=== PATIENT | male | born 1985 | race Caucasian/White ===

== ENCOUNTER 2018-09-19 22:02 | Observation (INO) | payer OTHER, MEDICAID, SELFPAY ==
[2018-09-19 22:12] VITALS: BP 167/95; PULSE 79; RESP 16; TEMP 37.2; O2SAT 99; BMI 30.1
--- NOTE | 2018-09-19 22:36 | DI.CT.S_ITS ---
PROCEDURE: CT ABDOMEN PELVIS W CON INDICATIONS: right lower quadrant pain TECHNIQUE: After the administration of intravenous contrast, 5 mm thick sections acquired from the diaphragm to the symphysis. 5 mm coronal and sagittal reformats were acquired. For radiation dose reduction, the following was used: automated exposure control, adjustment of mA and/or kV according to patient size. COMPARISON: None. FINDINGS: Image quality: Excellent. ABDOMEN: Lung bases: Lung bases are clear. Heart size is normal. There is a small hiatal hernia. Solid organs: There is diffuse hepatic fatty infiltration. Liver is normal in size and enhancement. Gallbladder is normal. Biliary system is non dilated. Pancreas enhances normally. Spleen is normal in size and enhancement. No adrenal nodules. Kidneys demonstrate normal size and enhancement, without hydronephrosis. Peritoneum and bowel: Appendix measures 7 mm in diameter. There is no periappendiceal stranding. A small amount fluid is noted in the tip of the appendix. No periappendiceal stranding. No fluid collections of the fluid in the right lower quadrant. No free air. Small bowel and colon loops demonstrate normal wall thickness and caliber. Nodes and vessels: No retroperitoneal or mesenteric adenopathy by size criteria. Aorta and inferior vena cava are normal in size. Miscellaneous: No ventral hernias. PELVIS: Genitourinary: Bladder wall thickness is normal. Miscellaneous: No inguinal hernias or adenopathy. Bones: No suspicious bony lesions. No vertebral body compression fractures. IMPRESSION: 1. Appendix measures at the upper limits of normal in size with a small amount in the tip of the appendix. The findings are equivocal for early acute appendicitis. Please correlate clinically. 2. Mild hepatic steatosis. No significant discrepancy with the cook night radiology preliminary report. Dictated by: Ranjana Garcia M.D. on 09/20/2018 at 7:43 Approved by: Ranjana Garcia M.D. on 09/20/2018 at 7:48
--- NOTE | 2018-09-19 22:46 | ED_ITS ---
HPI - Abdominal Pain General Chief Complaint: Abdominal Pain Stated Complaint: Sharp pain in right abdomen Time Seen by Provider: 09/19/18 22:22 Source: patient Mode of arrival: ambulatory Limitations: no limitations History of Present Illness HPI narrative: Patient is a 33-year-old male who presents with abdominal discomfort. Been off and on for the past couple of days radiating from his umbilical area to his right lower quadrant. Sharp and stabbing in atrial sometimes burning. He does not have persistent ongoing right lower quadrant pain more periumbilical. No nausea or vomiting. He has had some loose stool but no diarrhea, no vomiting or nausea. He has not had any flank pain no hematuria. MD complaint: abdominal pain Location: periumbilical Severity: mild Quality: cramping, stabbing and burning Radiation: RLQ Relieving factors: nothing Exacerbating factors: nothing Associated symptoms: denies other symptoms Related Data Previous Rx's Medication Instructions Recorded escitalopram 20 mg tablet 20 mg PO QDAY #90 tab 07/30/18 clonazepam 1 mg tablet 1 mg PO AT HS PRN #30 08/02/18 Allergies Allergy/AdvReac Type Severity Reaction Status Date / Time peanut [PEANUT] Allergy Severe HIVES, SOB Verified 06/21/18 16:36 sertraline [From ZOLOFT] Allergy Mild RASH Verified 06/21/18 16:36 Penicillins [PENICILLINS] Allergy Unknown CHILDHOOD Verified 06/21/18 16:36 DAIRY Allergy Severe SOB Uncoded 12/13/17 12:12 Review of Systems Review of Systems GENERAL: Denies chills, fatigue, malaise, fever, sweats, travel HEENT: Denies sinus pain, ear pain, sore throat, difficulty swallowing, neck pain RESPIRATORY: Denies dyspnea, cough, wheezing, hemoptysis, sputum. CARDIOVASCULAR: Denies chest pain, palpitations, orthopnea, edema GASTROINTESTINAL: See HPI : Denies dysuria, frequency, incontinence, hematuria, urinary retention, flank pain. MUSCULOSKELETAL: Denies weakness, joint pain, or bony pain SKIN: No rash, no erythema, no pruritus NEUROLOGIC: Denies weakness, dizziness, headache, numbness, change in speech, confusion PSYCHIATRIC: No concerning psychosocial issues. 12 point review of systems is negative except for those stated above and HPI PFSH Medical History Depression (Acute) Family History Mother Seizures Sister Type 1 diabetes Social History Smoking Status: Never smoker alcohol intake: current Exam Initial Vital Signs Initial Vital Signs: Vital Signs Temperature 99 F 09/19/18 22:12 Pulse Rate 79 09/19/18 22:12 Respiratory Rate 16 09/19/18 22:12 Blood Pressure 167/95 H 09/19/18 22:12 Pulse Oximetry 99 09/19/18 22:12 GENERAL: Well-appearing, well-nourished and in no acute distress. HEENT: Head atraumatic,EOMI, pupils reactive, CARDIOVASCULAR: Regular rate and rhythm without murmurs, rubs or gallops. RESPIRATORY: Breath sounds equal bilaterally, no wheezes rales or rhonchi. ABDOMEN: Soft, mild adair umbilical pain minimal right lower quadrant tenderness no guarding or rebound EXTREMITIES: Normal range of motion, no clubbing or edema. Neurovascularly intact NEUROLOGICAL: Alert and oriented x4.Normal gait and speech. Cranial nerves II through XII grossly intact. SKIN: Warm, dry, no laceration, no petechiae, no rashes or lesions. Course Orders Ordered: ED Orders 09/19/18 22:36 CT abdomen pelvis w con Stat 09/19/18 22:50 Complete Blood Count AUTO DIFF Stat Comprehensive Metabolic Panel Stat Lipase Stat Discontinued Medications Cefotetan Disodium/Dextrose (Cefotan) 2 gm in 50 mls @ 100 mls/hr IV NOW ONE Stop: 09/20/18 00:28 Last Admin: 09/20/18 00:20 Dose: 100 mls/hr Vital Signs - 8 hr 09/19/18 22:12 09/19/18 23:34 09/20/18 00:00 Temperature 99 F Pulse Rate 79 83 77 Respiratory Rate 16 15 Blood Pressure 167/95 H Blood Pressure [Left Arm] 131/75 152/92 H Pulse Oximetry 99 96 96 MDM - Abdominal Pain Lab Data Attestation: I reviewed the patient's lab results. Result diagrams: 09/19/18 22:50 09/19/18 22:50 Lab Results 09/19/18 09/19/18 Range/Units 22:50 22:50 WBC 5.8 (4.5-11.0) X10^3/uL RBC 5.26 (4.5-5.9) X10^6/uL Hgb 15.9 (13.5-17.5) g/dL Hct 47.4 (41-53) % MCV 90.3 (80-100) fL MCH 30.3 (26-34) PG MCHC 33.6 (30-36) % RDW 13.3 (11.6-14.8) % Plt Count 189 (150-400) X10^3/uL Neut % (Auto) 52.1 (50-75) % Lymph % (Auto) 36.3 (25-40) % [place] % (Auto) 9.3 (3-14) % Eos % (Auto) 1.8 L (2-4) % Baso % (Auto) 0.5 (0-2) % Neut # (Auto) 3000 (5407-4317) /uL Lymph # (Auto) 2100 (0535-2640) /uL [place] # (Auto) 500 (0-900) /uL Eos # (Auto) 100 (0-450) /uL Baso # (Auto) 0 (0-100) /uL Sodium 142 (137-145) mmol/L Potassium 3.9 (3.4-5.1) mmol/L Chloride 104 (98-107) mmol/L Carbon Dioxide 26 (22-32) mmol/L BUN 15 (9-20) mg/dL Creatinine 0.90 (0.66-1.25) mg/dL Estimated GFR > 60.0 (>60) mL/min BUN/Creatinine Ratio 16.7 (6-22) Glucose 94 (70-100) mg/dL Calcium 9.7 (8.4-10.2) mg/dL Total Bilirubin 0.5 (0.2-1.3) mg/dL AST 43 (17-59) IU/L ALT 91 H (21-72) IU/L Alkaline Phosphatase 49 (38-126) U/L Total Protein 7.6 (6.3-8.2) g/dL Albumin 4.7 (3.5-5.0) g/dL Globulin 2.9 (1.7-4.1) g/dL Albumin/Globulin Ratio 1.6 (1.0-2.8) Lipase 64 (23-300) U/L Imaging Data CT scan - abdomen: Radiologist's impression: [facility] shift lead report: Equivocal for early acute appendicitis with distal appendix fluid filled and minimally enlarged at 7 mm but no surrounding inflammation or walling off. Rest of appendix air-filled and normal size. Scattered mild diffuse colonic stool. MDM Narrative Medical decision making narrative: Patient is resting comfortably. CT results reviewed. Surgery called. Dr. Valencia, updated on patient's symptoms and test results. Agrees with admission recommend antibiotics will likely go to OR tomorrow. Keep NPO. Discharge Plan Departure Patient Disposition: Admitted as Observation Clinical Impression: Acute appendicitis Admit Date/Time: 09/20/18 00:12 Admit Provider: Seda Valencia
[2018-09-19 22:59] LABS: Add Manual Diff / Slide Review NO; Basophils Absolute Auto 0 /uL (0-100); Basophils Percent Auto 0.5 % (0-2); Eosinophils Absolute Auto 100 /uL (0-450); Eosinophils Percent Auto 1.8 % (2-4); Hematocrit 47.4 % (41-53); Hemoglobin 15.9 g/dL (13.5-17.5); Lymphocytes Absolute Auto 2100 /uL (1100-4500); Lymphocytes Percent Auto 36.3 % (25-40); Mean Corpuscular HGB Conc 33.6 % (30-36); Mean Corpuscular Hemoglobin 30.3 PG (26-34); Mean Corpuscular Volume 90.3 fL (80-100); Monocytes Absolute Auto 500 /uL (0-900); Monocytes Percent Auto 9.3 % (3-14); Neutrophils Absolute Auto 3000 /uL (1500-7000); Neutrophils Percent Auto 52.1 % (50-75); Platelet Count 189 X10^3/uL (150-400); Red Blood Cell Count 5.26 X10^6/uL (4.5-5.9); Red Cell Distribution Width 13.3 % (11.6-14.8); White Blood Cell Count 5.8 X10^3/uL (4.5-11.0)
[2018-09-19 23:11] LABS: Alanine Aminotransferase 91 IU/L (21-72); Albumin 4.7 g/dL (3.5-5.0); Albumin Globulin Ratio 1.6 (1.0-2.8); Alkaline Phosphatase 49 U/L (38-126); Aspartate Aminotransferase 43 IU/L (17-59); BUN Creatinine Ratio 16.7 (6-22); Bilirubin Total 0.5 mg/dL (0.2-1.3); Blood Urea Nitrogen 15 mg/dL (9-20); Calcium 9.7 mg/dL (8.4-10.2); Carbon Dioxide 26 mmol/L (22-32); Chloride 104 mmol/L (98-107); Estimated Glomerular Filt Rate > 60.0 mL/min (>60); Globulin 2.9 g/dL (1.7-4.1); Glucose 94 mg/dL (70-100); HEMOLYSIS 31 (0-50); Lipase 64 U/L (23-300); Potassium 3.9 mmol/L (3.4-5.1); Sodium 142 mmol/L (137-145); Total Protein 7.6 g/dL (6.3-8.2)
[2018-09-19 23:34] VITALS: BP 131/75; PULSE 83; RESP 15; O2SAT 96
[2018-09-20] VITALS (15 sets, daily range): BP systolic 126–161; BP diastolic 64–93; PULSE 52–102; RESP 14–18; TEMP 36.3–37.1; O2SAT 93–99; BMI 30.1
--- NOTE | 2018-09-20 | PATH_ITS ---
[facility] Accession Number: [id number] . 01 Material submitted: . APPENDIX . 02 Diagnosis: Appendix: Changes consistent with early acute appendicitis. Negative for atypia. MRV/09/24/2018 . 02 Electronically signed: . Georgi Welsh MD, Pathologist NPI- [id number] . 01 Gross description: . Received in formalin, labeled appendix, is an intact appendix (length-4.8 cm, diameter-0.9 cm) with gonzales-pink smooth and shiny serosa and attached mesoappendix (up to 2.7 cm in depth). The resection margin is received stapled. The lumen contains pale yellow turbid paste-like material. The wall is up to 0.2 cm thick. No nodules, masses or lesions are identified. The resection margin is inked black. Section code: (A1) resection margin en face and four additional serial sections; (A2) bivalved tip, entirely submitted. ([id number]) /[facility] . 02 Pathologist provided ICD-10: K35.80 . 02 CPT . 972321 Performed at: 01 [facility] [address], [place], [place] [id number] MD Baldev Landeros MD Phone: [phone] Performed at: 02 [facility] [address] [place], [place] [id number] MD Maile Bundy MD Phone: [phone]
[2018-09-20] MEDS: CEFOTETAN 2 GM/50 ML PIGGYBACK IV ×2 (00:20→17:20)
[2018-09-20] MEDS: SODIUM CHLORIDE 0.9% 1,000 ML 125 ML IV ×2 (01:51→09:11)
--- NOTE | 2018-09-20 05:32 | PC.NURSE ---
Pt arrived on unit at 0015, able to ambulate well. VSS, A and O x 4. Denies pain unless pressure applied to R LQ then pain there and on L LQ as well. Able to sleep. NPO. Tolerating IVF well.
--- NOTE | 2018-09-20 13:57 | CM.IDA ---
Addendum entered by CORBY Quintana 09/20/18 15:36: Met w/pt, explained role. Pt about to leave floor for his surgery. Pt expects to DC after his surgery, tonight. Pt explains he is confident about going home and has family driving up to assist as needed. No barriers to safe DC home expected. Original Note: Discharge Planning/Care Management CM Discharge Assessment Start: 09/20/18 13:51 Freq: Status: Active Protocol: Document 09/20/18 13:51 FELIX (Rec: 09/20/18 13:57 FELIX [id number]) Discharge Planning Assessment Assigned Protector Plate Attacher CORBY Watson DPOA/Assigned Designee Name fela Gentile Contact Information [phone] Advance Directives? No Advance Directives on File No History Provided By Patient Prior Living Arrangements House Household Members none Type of transporation used prior to Drives own vehicle admit Comment Reviewed chart. No H+P. Pt going to the OR w/ confirmed appendicitis. PMH includes depression and anxiety attacks . Following closely and will plan to assess before pt is DC . Independent with ADL's Yes Is patient alert and oriented? Yes Barriers to Discharge No Comment Likely no barriers to safe DC home. Following closely. Discharge Plan Home Transportation Arrangement Family Referrals Initiated None needed Additional Comment Following. Whiteboard Updated in Patient Room with Yes name and ext. # of Protector Plate Attacher Review Status In Process
--- NOTE | 2018-09-20 17:04 | PM.HP.1 ---
History of Present Illness Date Patient Seen: 09/20/18 Time Patient Seen: 17:04 Chief complaint: Sharp pain in right abdomen Narrative: Shiraz is a 33-year-old gentleman who presented the emergency room with several days of waxing waning right lower quadrant pain. He was found on examination and CT to have early appendicitis. I have been consulted for definitive management. He denies any fever at home. He describes his discomfort as sharp and intermittent. Patient History Medical History Depression (Acute) Family & Social History Family History: Reviewed 09/20/18 by Seda Valencia MD Social History: household members none Prior Living Arrangements House Safety & Behavioral: Feels Safe in Current Yes Environment Been Physically Hurt or No Threatened By a Person Suicidal Ideation Description None Suicide Plan Description No Plan Tobacco & Substance use: Smoking Status Never smoker alcohol intake current alcohol intake frequency 0-2 drinks per day Substance Use Type marijuana Meds Home Medications Medication Instructions Recorded Confirmed Type clonazepam 1 mg tablet 1 mg PO AT HS PRN #30 08/02/18 09/20/18 Rx escitalopram oxalate 10 mg PO QAM 09/20/18 09/20/18 History Allergies Allergy/AdvReac Type Severity Reaction Status Date / Time peanut [PEANUT] Allergy Severe HIVES, SOB Verified 06/21/18 16:36 sertraline [From ZOLOFT] Allergy Mild RASH Verified 06/21/18 16:36 Penicillins [PENICILLINS] Allergy Unknown CHILDHOOD Verified 06/21/18 16:36 DAIRY Allergy Severe SOB Uncoded 12/13/17 12:12 Review of Systems Review of Systems All systems reviewed & are unremarkable except as noted in HPI and below Exam Vital Signs (past 8 hours): - 09/20/18 13:34 09/20/18 15:43 Temperature 98.8 F 98.8 F Pulse Rate 61 53 L Respiratory Rate 16 16 Blood Pressure 142/93 H 134/84 Pulse Oximetry 96 94 Oxygen Delivery Method Room Air Narrative Exam Narrative: Very pleasant young man in no obvious distress. He is walking around his room and appears comfortable HEENT: Normocephalic and atraumatic, pupils equal round reactive to light accommodation with anicteric sclera Lungs: Clear bilaterally Heart: Regular rate and rhythm Abdomen: Soft, tender to palpation in the right lower quadrant. Active bowel sounds Extremities: Warm well perfused Objective Labs Result Diagrams: 09/19/18 22:50 09/19/18 22:50 Labs: Laboratory Results - last 24 hr 09/19/18 09/19/18 22:50 22:50 WBC 5.8 RBC 5.26 Hgb 15.9 Hct 47.4 MCV 90.3 MCH 30.3 MCHC 33.6 RDW 13.3 Plt Count 189 Neut % (Auto) 52.1 Lymph % (Auto) 36.3 [place] % (Auto) 9.3 Eos % (Auto) 1.8 L Baso % (Auto) 0.5 Neut # (Auto) 3000 Lymph # (Auto) 2100 [place] # (Auto) 500 Eos # (Auto) 100 Baso # (Auto) 0 Sodium 142 Potassium 3.9 Chloride 104 Carbon Dioxide 26 BUN 15 Creatinine 0.90 Estimated GFR > 60.0 BUN/Creatinine Ratio 16.7 Glucose 94 Calcium 9.7 Total Bilirubin 0.5 AST 43 ALT 91 H Alkaline Phosphatase 49 Total Protein 7.6 Albumin 4.7 Globulin 2.9 Albumin/Globulin Ratio 1.[address] [place] [address] CT Scan Report Addendum Patient: Werner Fischer MR#: [id number] : 1985 Acct:[id number] Age/Sex: 33 / M Date of Service: 09/19/18 Loc: 205-1 Accession Number: [id number] Procedure: CT abdomen pelvis w con Ordering Provider: Claudia Medina D.O. ADDENDUM This report includes an Addendum and supersedes previous reports for this exam. PROCEDURE: CT ABDOMEN PELVIS W CON INDICATIONS: right lower quadrant pain TECHNIQUE: After the administration of intravenous contrast, 5 mm thick sections acquired from the diaphragm to the symphysis. 5 mm coronal and sagittal reformats were acquired. For radiation dose reduction, the following was used: automated exposure control, adjustment of mA and/or kV according to patient size. COMPARISON: None. FINDINGS: Image quality: Excellent. ABDOMEN: Lung bases: Lung bases are clear. Heart size is normal. There is a small hiatal hernia. Solid organs: There is diffuse hepatic fatty infiltration. Liver is normal in size and enhancement. Gallbladder is normal. Biliary system is non dilated. Pancreas enhances normally. Spleen is normal in size and enhancement. No adrenal nodules. Kidneys demonstrate normal size and enhancement, without hydronephrosis. Peritoneum and bowel: Appendix measures 7 mm in diameter. There is no periappendiceal stranding. A small amount fluid is noted in the tip of the appendix. No periappendiceal stranding. No fluid collections of the fluid in the right lower quadrant. No free air. Small bowel and colon loops demonstrate normal wall thickness and caliber. Nodes and vessels: No retroperitoneal or mesenteric adenopathy by size criteria. Aorta and inferior vena cava are normal in size. Miscellaneous: No ventral hernias. PELVIS: Genitourinary: Bladder wall thickness is normal. Miscellaneous: No inguinal hernias or adenopathy. Bones: No suspicious bony lesions. No vertebral body compression fractures. IMPRESSION: 1. Appendix measures at the upper limits of normal in size with a small amount of fluid in the tip of the appendix. The findings are equivocal for early acute appendicitis. Please correlate clinically. 2. Mild hepatic steatosis. No significant discrepancy with the plant operator/shift supervisor radiology preliminary report. Dictated by: Ranjana Garcia M.D. on 09/20/2018 at 7:43 Approved by: Ranjana Garcia M.D. on 09/20/2018 at 7:48 ADDENDUM: Typograophic error(s) corrected (underlined) impression #1. Dictated by: Ranjana Garcia M.D. on 09/20/2018 at 9:38 Approved by: Ranjana Garcia M.D. on 09/20/2018 at 9:38 Addendum Dictated By: Chrissy Garcia MD Addendum Signed By: Addendum Cosigned By: DD/ TD/TT: 09/20/18 PROCEDURE: CT ABDOMEN PELVIS W CON INDICATIONS: right lower quadrant pain TECHNIQUE: After the administration of intravenous contrast, 5 mm thick sections acquired from the diaphragm to the symphysis. 5 mm coronal and sagittal reformats were acquired. For radiation dose reduction, the following was used: automated exposure control, adjustment of mA and/or kV according to patient size. COMPARISON: None. FINDINGS: Image quality: Excellent. ABDOMEN: Lung bases: Lung bases are clear. Heart size is normal. There is a small hiatal hernia. Solid organs: There is diffuse hepatic fatty infiltration. Liver is normal in size and enhancement. Gallbladder is normal. Biliary system is non dilated. Pancreas enhances normally. Spleen is normal in size and enhancement. No adrenal nodules. Kidneys demonstrate normal size and enhancement, without hydronephrosis. Peritoneum and bowel: Appendix measures 7 mm in diameter. There is no periappendiceal stranding. A small amount fluid is noted in the tip of the appendix. No periappendiceal stranding. No fluid collections of the fluid in the right lower quadrant. No free air. Small bowel and colon loops demonstrate normal wall thickness and caliber. Nodes and vessels: No retroperitoneal or mesenteric adenopathy by size criteria. Aorta and inferior vena cava are normal in size. Miscellaneous: No ventral hernias. PELVIS: Genitourinary: Bladder wall thickness is normal. Miscellaneous: No inguinal hernias or adenopathy. Bones: No suspicious bony lesions. No vertebral body compression fractures. IMPRESSION: 1. Appendix measures at the upper limits of normal in size with a small amount in the tip of the appendix. The findings are equivocal for early acute appendicitis. Please correlate clinically. 2. Mild hepatic steatosis. No significant discrepancy with the plant operator/shift supervisor radiology preliminary report. Dictated by: Ranjana Garcia M.D. on 09/20/2018 at 7:43 Approved by: Ranjana Garcia M.D. on 09/20/2018 at 7:48 Assessment & Plan Plan: Assessment/Plan Narrative: Very pleasant and healthy young man with early appendicitis. We discussed the risks and benefits of appendectomy the patient expressed desire to complete the procedure today. Quality VTE Deep Vein Thrombosis/Pulmonary Embolism Present on Admission: No
[2018-09-20] MEDS: LACTATED RINGERS 1,000 ML 42 ML IV (17:11)
[2018-09-20] MEDS: ACETAMINOPHEN IV 1,000 MG/100 ML VIAL 400 MG IV (17:40)
[2018-09-20] MEDS: LIDOCAINE 1% W/EPI INJ 20 ML INJ (18:01)
[2018-09-20] MEDS: BUPIVACAINE 0.5% (PF) VIAL 30 ML INJ (18:02)
--- NOTE | 2018-09-20 18:14 | PM.OP.1 ---
Operative Date/Time/Diagnoses Date of procedure: 09/20/18 Time of procedure: 18:14 Pre-op diagnosis: Acute appendicitis Post-op diagnosis: same Procedure & Clinicians Procedure: Laparoscopic Appendectomy Same procedure as scheduled: Yes Indications: Acute appendicitis Click Yes if Unassisted: Yes Anesthesia Type: General (Dr. Aguilar) Operative Notes Findings: Early acute appendicitis without rupture or peritonitis Closure Type: primary Specimen(s): other (Appendix to pathology in formalin) Estimated Blood Loss (mL): 5 Procedure in detail: After obtaining informed consent, the patient was brought to the operating room and placed in the supine position on the operating table. Following successful induction of general endotracheal anesthesia, appropriate padding of all loretta prominences, and placement of appropriate monitors, the abdomen was prepped and draped in the standard surgical fashion. A timeout was held per [facility] protocol. Following infiltration with local anesthetic to create a field block, an incision was created inferior to the umbilicus and carried down through the skin and subcutaneous tissue to reveal the fascia below. 2-0 Vicryl retention sutures were placed on either side of midline and the abdomen was entered under direct vision using an 11 blade scalpel. A 12 mm blunt-tipped Elaine trocar was placed in the abdominal cavity and it was insufflated to 15 mmHg pressure. The patient was placed in Trendelenburg position with the left side rotated toward the floor. Under direct vision, a second 5 mm trocar was placed in the right upper quadrant and a third 5 mm trocar was placed midway between the umbilicus and the pubis. The camera was placed in the abdominal cavity and we immediately visualized the appendix in the anti-cecal position. The appendix was grasped and elevated to reveal its attachment to the cecum. 3 loads of a laparoscopic stapling device were used to liberate the appendix and its mesentery from its attachment to the cecum. The specimen was placed in a bag and removed via the umbilical port. The wounds were checked for hemostasis. The operative site was visualized and irrigated with warm saline solution. The abdomen was aspirated free of all fluid and particulate matter. The trochars were removed under direct vision. The abdomen was desufflated by giving the patient a large Valsalva maneuver. The umbilical incision was closed in 2 layers with Vicryl and Monocryl suture. Monocryl sutures were placed in the other 2 port sites. All sponge, needle, and instrument counts were correct at the conclusion of the case. The patient was allowed to awaken from anesthesia without difficulty and taken to the post-anesthesia care unit in good condition. Complications: none Condition: stable Disposition: PACU Plan for aftercare: 1. Discharge to home 2. Follow up in my office in 2 weeks
[2018-09-20] MEDS: OXYCODONE/ACETAMINOPHEN 5/325 TABLET 1 TAB PO (18:51)
--- NOTE | 2018-09-20 22:13 | PC.NURSE ---
Pt is A&O x3, pleasant and cooperative w/ staff. Patient left floor for surgery of a lap appi at 1630. Patient arrived back to floor w/ no pain, n/v and was told he was to be D/C today. D/C orders were not in on nurse screen. Dr. Navarro up to floor rounding, discussed d/c of patient orders placed. IV out w/ ease, pt kurtis. well. VSS, 100% on RA. 3 Lap sites left GALINDO w/ Dermabond glue. Pt. walked self out to personal car. Left in stable condition.
== END 2018-09-20 22:16 | disposition home or self-care (01) ==
LOC: ED 09-20 00:07 → AC 09-20 06:48
PROVIDERS: Admitting Provider Surgery; Emergency Provider Emergency Medicine; Family Provider Family Medicine; PCP Family Medicine; Visit Provider Surgery
PROC: 0DTJ4ZZ Resection of Appendix, Percutaneous Endoscopic Approach (ICD-10-PCS; CPT 44970; principal; 2018-09-20 16:30)
DX: K35.80 Unspecified acute appendicitis (principal); R10.9 Unspecified abdominal pain
CPT/HCPCS: 44970; 36591; 74177; 80053; 83690; 85025; 88304; 96365; 99219; 99283; 99285; G0378; J0131; J0330; J1100; J2250; J2405; J2704; J3010; Q9967

== ENCOUNTER 2019-01-05 19:30 | Emergency (ER) | payer OTHER, MEDICAID, SELFPAY ==
[2018-09-20 01:24] VITALS: BMI 30.1
[2019-01-05 19:43] VITALS: BP 148/90; PULSE 97; RESP 18; TEMP 37; O2SAT 98; BMI 30.1
--- NOTE | 2019-01-05 19:45 | ED.ABDPAIN ---
HPI - Abdominal Pain <Flavia Agee PA-C - Last Filed: 01/05/19 21:37> General Chief Complaint: Abdominal Pain Stated Complaint: abdominal pains Time Seen by Provider: 01/05/19 19:44 Source: patient Mode of arrival: ambulatory Limitations: no limitations History of Present Illness HPI narrative: This 33-year-old male comes to ED secondary to recurrent abdominal pain. He states he was seen at walk-in clinic earlier and advised he could come to ED if desired. No further workup done there. He states that he has had ?random? side pain, can occur on either side. He is cries these as brief stabbing pains that resolved right away, like a stitch. He states he thinks this has been going on since after his appendectomy, and he notes that he had pain on the left side prior to having his appendix out as well. he states that pain is worse if she over eats or has a full stomach. He noted that it was worse 1 day after eating pizza however notes also that he is lactose intolerant. He states that he has felt more gassy lately and also has been taking fiber due to history of hemorrhoid. He feels like this has gradually worsened over the last couple of weeks in that the pains happen more frequently, no acute changes today. He denies any nausea or vomiting. He denies any constipation or diarrhea, rare blood in the stools related to hemorrhoids, none in the last couple of weeks. He has not had any nausea or vomiting. He has not had any urinary symptoms or hematuria. He states he has had some sinus congestion and discolored nasal mucus with a bit of cough this week, felt somewhat warm last night but no temperature is taken, does not feel like he has a fever today. He states he has some chest congestion but no wheeze, dyspnea, or chest pain. He states his cough has not seem to trigger or make his abdominal pain worse. Related Data Previous Rx's Medication Instructions Recorded albuterol sulfate HFA 90 2 puff INHALATION Q6H PRN #18 gram 11/13/18 mcg/actuation aerosol inhaler clonazepam 1 mg tablet 1 mg PO AT HS PRN #30 tab 11/13/18 escitalopram 20 mg tablet 20 mg PO QAM #30 tab 11/13/18 Allergies Allergy/AdvReac Type Severity Reaction Status Date / Time peanut [PEANUT] Allergy Severe HIVES, SOB Verified 01/05/19 12:51 sertraline [From ZOLOFT] Allergy Mild RASH Verified 01/05/19 12:51 Penicillins [PENICILLINS] Allergy Unknown CHILDHOOD Verified 01/05/19 12:51 DAIRY Allergy Severe SOB Uncoded 12/13/17 12:12 Review of Systems <Flavia Agee PA-C - Last Filed: 01/05/19 21:37> Review of Systems ROS Unobtainable: All systems reviewed & are unremarkable except as noted in HPI and below PFSH <Flavia Agee PA-C - Last Filed: 01/05/19 21:37> Medical History (Updated 01/05/19 @ 21:14 by Flavia Agee PA-C) Lactose intolerance (Chronic) Panic attacks (Chronic) Depression (Chronic) Surgical History (Updated 01/05/19 @ 20:14 by Flavia Agee PA-C) Acute appendicitis (Resolved) Family History Mother Seizures Sister Type 1 diabetes Social History household members: none Smoking Status: Never smoker alcohol intake: current Social History household members: none Smoking Status: Never smoker alcohol intake: current Exam <Flavia Agee PA-C - Last Filed: 01/05/19 21:37> Narrative Exam Narrative: GENERAL APPEARANCE: Patient sitting comfortably, in no distress. HEENT: PERRL, EOMI, no scleral icterus for, normal oropharynx NECK: Supple LUNGS: Clear to auscultation bilaterally. HEART: Rate and rhythm regular, normal S1 and S2, no S3 or S4. ABDOMEN: Soft, nontender, nondistended, bowel sounds present x 4 quadrants, no masses palpable, no hepatosplenomegaly, no CVAT. EXTREMITIES: No edema DERMATOLOGIC: No jaundice or exanthem NEUROLOGIC: Alert and oriented with normal speech and coordination Initial Vital Signs Initial Vital Signs: Vital Signs Temperature 98.6 F 01/05/19 19:43 Pulse Rate 97 H 01/05/19 19:43 Respiratory Rate 18 01/05/19 19:43 Blood Pressure 148/90 H 01/05/19 19:43 Pulse Oximetry 98 01/05/19 19:43 <DO Fernando Cobos Last Filed: 01/06/19 01:20> Initial Vital Signs Initial Vital Signs: Vital Signs Temperature 98.6 F 01/05/19 19:43 Pulse Rate 97 H 01/05/19 19:43 Respiratory Rate 18 01/05/19 19:43 Blood Pressure 148/90 H 01/05/19 19:43 Pulse Oximetry 98 01/05/19 19:43 Course <EVA Saldaña Last Filed: 01/05/19 21:37> Additional Information: Patient has chronic abdominal pain atypical for any acute surgical issue, may be correlated with food and increased fiber intake since surgery. No acute findings on lab work. Advised follow-up with PCP next week to determine whether to do further outpatient testing, i.e. ultrasound, or any other consultation. He is agreeable. He agrees to return if any acutely worsening symptoms or new symptoms such as vomiting or fever in the interim Orders Ordered: ED Orders 01/05/19 20:20 Complete Blood Count AUTO DIFF Stat Comprehensive Metabolic Panel Stat Lipase Stat Vital Signs - 8 hr 01/05/19 19:43 01/05/19 21:28 Temperature 98.6 F 98.8 F Pulse Rate 97 H 90 Respiratory Rate 18 18 Blood Pressure 148/90 H 135/80 Pulse Oximetry 98 99 <DO Fernando Cobos Last Filed: 01/06/19 01:20> Orders Ordered: ED Orders 01/05/19 20:20 Complete Blood Count AUTO DIFF Stat Comprehensive Metabolic Panel Stat Lipase Stat Vital Signs - 8 hr 01/05/19 19:43 01/05/19 21:28 Temperature 98.6 F 98.8 F Pulse Rate 97 H 90 Respiratory Rate 18 18 Blood Pressure 148/90 H 135/80 Pulse Oximetry 98 99 MDM - Abdominal Pain <EVA Saldaña Last Filed: 01/05/19 21:37> Lab Data Result diagrams: 01/05/19 20:20 01/05/19 20:20 Lab Results 01/05/19 01/05/19 Range/Units 20:20 20:20 WBC 6.2 (4.5-11.0) X10^3/uL RBC 5.15 (4.5-5.9) X10^6/uL Hgb 15.3 (13.5-17.5) g/dL Hct 44.8 (41-53) % MCV 87.0 (80-100) fL MCH 29.8 (26-34) PG MCHC 34.2 (30-36) % RDW 13.4 (11.6-14.8) % Plt Count 161 (150-400) X10^3/uL Neut % (Auto) 63.9 (50-75) % Lymph % (Auto) 18.0 L (25-40) % Cooke % (Auto) 16.2 H (3-14) % Eos % (Auto) 0.9 L (2-4) % Baso % (Auto) 1.0 (0-2) % Neut # (Auto) 4000 (4434-7493) /uL Lymph # (Auto) 1100 (5175-0597) /uL Cooke # (Auto) 1000 H (0-900) /uL Eos # (Auto) 100 (0-450) /uL Baso # (Auto) 100 (0-100) /uL Sodium 138 (137-145) mmol/L Potassium 4.0 (3.4-5.1) mmol/L Chloride 100 (98-107) mmol/L Carbon Dioxide 29 (22-32) mmol/L BUN 12 (9-20) mg/dL Creatinine 0.90 (0.66-1.25) mg/dL Estimated GFR > 60.0 (>60) mL/min BUN/Creatinine Ratio 13.3 (6-22) Glucose 95 (70-100) mg/dL Calcium 9.2 (8.4-10.2) mg/dL Total Bilirubin 0.7 (0.2-1.3) mg/dL AST 27 (17-59) IU/L ALT 69 (21-72) IU/L Alkaline Phosphatase 54 (38-126) U/L Total Protein 7.6 (6.3-8.2) g/dL Albumin 4.6 (3.5-5.0) g/dL Globulin 3.0 (1.7-4.1) g/dL Albumin/Globulin Ratio 1.5 (1.0-2.8) Lipase 59 (23-300) U/L Point of care testing: Urine Dip Bedside Urine Glucose Negative Bedside Urine Bilirubin - Negative Bedside Urine Ketone - Negative Urine Specific Redmon 1.015 Bedside Urine Occult Blood - Negative Bedside Urine pH 7.0 Bedside Urine Protein - Negative Bedside Urine Urobilinogen - Negative Bedside Urine Nitrite - Negative Bedside Urine Leukocytes - Negative Esterase <Brenden DO Kenney - Last Filed: 01/06/19 01:20> Lab Data Lab Results 01/05/19 01/05/19 Range/Units 20:20 20:20 WBC 6.2 (4.5-11.0) X10^3/uL RBC 5.15 (4.5-5.9) X10^6/uL Hgb 15.3 (13.5-17.5) g/dL Hct 44.8 (41-53) % MCV 87.0 (80-100) fL MCH 29.8 (26-34) PG MCHC 34.2 (30-36) % RDW 13.4 (11.6-14.8) % Plt Count 161 (150-400) X10^3/uL Neut % (Auto) 63.9 (50-75) % Lymph % (Auto) 18.0 L (25-40) % Cooke % (Auto) 16.2 H (3-14) % Eos % (Auto) 0.9 L (2-4) % Baso % (Auto) 1.0 (0-2) % Neut # (Auto) 4000 (8340-0398) /uL Lymph # (Auto) 1100 (9648-3986) /uL Cooke # (Auto) 1000 H (0-900) /uL Eos # (Auto) 100 (0-450) /uL Baso # (Auto) 100 (0-100) /uL Sodium 138 (137-145) mmol/L Potassium 4.0 (3.4-5.1) mmol/L Chloride 100 (98-107) mmol/L Carbon Dioxide 29 (22-32) mmol/L BUN 12 (9-20) mg/dL Creatinine 0.90 (0.66-1.25) mg/dL Estimated GFR > 60.0 (>60) mL/min BUN/Creatinine Ratio 13.3 (6-22) Glucose 95 (70-100) mg/dL Calcium 9.2 (8.4-10.2) mg/dL Total Bilirubin 0.7 (0.2-1.3) mg/dL AST 27 (17-59) IU/L ALT 69 (21-72) IU/L Alkaline Phosphatase 54 (38-126) U/L Total Protein 7.6 (6.3-8.2) g/dL Albumin 4.6 (3.5-5.0) g/dL Globulin 3.0 (1.7-4.1) g/dL Albumin/Globulin Ratio 1.5 (1.0-2.8) Lipase 59 (23-300) U/L Point of care testing: Urine Dip Bedside Urine Glucose Negative Bedside Urine Bilirubin - Negative Bedside Urine Ketone - Negative Urine Specific Redmon 1.015 Bedside Urine Occult Blood - Negative Bedside Urine pH 7.0 Bedside Urine Protein - Negative Bedside Urine Urobilinogen - Negative Bedside Urine Nitrite - Negative Bedside Urine Leukocytes - Negative Esterase Discharge Plan Departure Patient Disposition: Home Clinical Impression: Intermittent abdominal pain Discharge Date/Time: 01/05/19 21:28 Interventions: ED Discharge Assessment Last Done: 01/05/19 21:28 Instructions: DI for Abdominal Pain-Adult Activity Restrictions/Additional Instructions: Please return as we talked about if you have any acutely worsening symptoms or new symptoms such as profuse vomiting or fever. There are no findings on your lab work or exam today to suggest an acute surgical issue or problem that you need to be hospitalized for. Please call your PCP on Monday and let them know you were seen in the ED and need to follow up for abdominal pain. in the interim, please keep a diary of when your symptoms occur and any factors that you think may trigger them. Keep a food diary as well. Prescriptions: No Action escitalopram oxalate 20 mg tablet 20 mg PO QAM Qty: 30 RF: 5 Ventolin HFA 90 mcg/actuation HFA aerosol inhaler 2 puff INHALATION Q6H PRN (Reason: shortness of breath or wheezing) Qty: 18 RF: 2 clonazepam [Klonopin] 1 mg tablet 1 mg PO AT HS PRN (Reason: anxiety) Qty: 30 RF: 0 Referrals: Bonita Nagy DO [Primary Care Provider] - <Brenden Moulton DO - Last Filed: 01/06/19 01:20> Cosign ED Attending Franciscaature Attestation: I was immediately available in the department for consultation. Documentation has been reviewed. I agree with assessment and plan.
[2019-01-05 20:28] LABS: Add Manual Diff / Slide Review NO; Basophils Absolute Auto 100 /uL (0-100); Eosinophils Absolute Auto 100 /uL (0-450); Eosinophils Percent Auto 0.9 % (2-4); Hematocrit 44.8 % (41-53); Hemoglobin 15.3 g/dL (13.5-17.5); Lymphocytes Absolute Auto 1100 /uL (1100-4500); Mean Corpuscular HGB Conc 34.2 % (30-36); Mean Corpuscular Hemoglobin 29.8 PG (26-34); Monocytes Absolute Auto 1000 /uL (0-900); Monocytes Percent Auto 16.2 % (3-14); Neutrophils Absolute Auto 4000 /uL (1500-7000); Neutrophils Percent Auto 63.9 % (50-75); Platelet Count 161 X10^3/uL (150-400); Red Blood Cell Count 5.15 X10^6/uL (4.5-5.9); Red Cell Distribution Width 13.4 % (11.6-14.8); White Blood Cell Count 6.2 X10^3/uL (4.5-11.0)
[2019-01-05 20:41] LABS: Alanine Aminotransferase 69 IU/L (21-72); Albumin 4.6 g/dL (3.5-5.0); Albumin Globulin Ratio 1.5 (1.0-2.8); Alkaline Phosphatase 54 U/L (38-126); Aspartate Aminotransferase 27 IU/L (17-59); BUN Creatinine Ratio 13.3 (6-22); Bilirubin Total 0.7 mg/dL (0.2-1.3); Blood Urea Nitrogen 12 mg/dL (9-20); Calcium 9.2 mg/dL (8.4-10.2); Carbon Dioxide 29 mmol/L (22-32); Chloride 100 mmol/L (98-107); Estimated Glomerular Filt Rate > 60.0 mL/min (>60); Glucose 95 mg/dL (70-100); HEMOLYSIS < 15 (0-50); Lipase 59 U/L (23-300); Sodium 138 mmol/L (137-145); Total Protein 7.6 g/dL (6.3-8.2)
[2019-01-05 21:28] VITALS: BP 135/80; PULSE 90; RESP 18; TEMP 37.1; O2SAT 99
== END 2019-01-05 21:28 | disposition home or self-care (01) ==
PROVIDERS: Emergency Provider Internal Medicine; PCP Family Medicine
DX: R10.9 Unspecified abdominal pain (principal); R05 Cough; R09.81 Nasal congestion; R14.3 Flatulence
CPT/HCPCS: 80053; 81003; 83690; 85025; 99282; 99283

== ENCOUNTER 2019-07-04 18:04 | Emergency (ER) | payer OTHER, MEDICAID, SELFPAY ==
[2018-09-20 01:24] VITALS: BMI 30.1
[2019-07-04 18:11] VITALS: PULSE 86; RESP 15; TEMP 36.6; O2SAT 98; BMI 31.5
--- NOTE | 2019-07-04 18:15 | DI.US.S_ITS ---
PROCEDURE: US SCROTUM INDICATIONS: LEFT SCROTAL PAIN TECHNIQUE: Real-time scanning was performed of the scrotum and testicles, with image documentation. Color and pulse Doppler interrogation was performed of both testicles. COMPARISON: None. FINDINGS: Right: Testicle is normal in size at 5.7 x 2.4 x 3.0 cm, and homogenous in echotexture. Epididymis is normal in overall size and morphology. No hydrocele or varicoceles. Overlying scrotal skin is normal in thickness. Left: Testicle is normal in size at 5.2 x 2.1 x 3.1 cm, and homogeneous in echotexture. Epididymis is normal in overall size and morphology. No hydrocele or varicoceles. Overlying scrotal skin is normal in thickness. Doppler: Color and pulse Doppler demonstrate normal and symmetric arterial flow in both testicles. IMPRESSION: 1. Normal bilateral arterial and venous waveforms. No hyperemia or other sonographic abnormalities. No findings to explain left scrotal pain. Dictated by: Olivia Amos M.D. on 07/04/2019 at 19:29 Approved by: Olivia Amos M.D. on 07/04/2019 at 19:29
--- NOTE | 2019-07-04 18:27 | ED_ITS ---
HPI - Male Genitourinary General Chief complaint: Urogenital-Male Stated complaint: groin pain Time Seen by Provider: 07/04/19 18:07 Source: patient Mode of arrival: Ambulatory Limitations: no limitations History of Present Illness HPI Narrative: Patient is a 34-year-old male who presents with left groin pain. It has been ongoing for last 2 days. He denies any injury, no redness swelling. he has no on penile discharge no new sexual partners or history of STDs. He denies any flank pain or radiating pain from his flank to his groin. He has no bulging. No history of lifting anything heavy it does not hurt when he coughs or sneezes MD Complaint: testicle pain Onset (ago): day(s) Duration: constant Radiation: left testicle Severity: mild Quality: aching Relieving factors: none Exacerbating factors: none Related Data Previous Rx's Medication Instructions Recorded albuterol sulfate 90 mcg/actuation 2 puff INHALATION Q6H PRN #18 gram 11/13/18 aerosol inhaler escitalopram oxalate 20 mg tablet 20 mg PO QAM #30 tab 11/13/18 clonazepam 1 mg tablet 1 mg PO AT HS PRN #30 tab 05/01/19 Allergies Allergy/AdvReac Type Severity Reaction Status Date / Time peanut [PEANUT] Allergy Severe HIVES, SOB Verified 07/04/19 17:13 sertraline [From ZOLOFT] Allergy Mild RASH Verified 07/04/19 17:13 Penicillins [PENICILLINS] Allergy Unknown CHILDHOOD Verified 07/04/19 17:13 DAIRY Allergy Severe SOB Uncoded 07/04/19 17:13 Review of Systems Review of Systems Narrative: GENERAL: Denies chills,fever HEENT: Denies throat pain RESPIRATORY: Denies dyspnea, cough, wheezing CARDIOVASCULAR: Denies chest pain, palpitations GASTROINTESTINAL: Denies nausea, vomiting : See HPI MUSCULOSKELETAL: Denies extremity pain, injury SKIN: No rash, no laceration, no pruritus NEUROLOGIC: Denies weakness, dizziness, headache, numbness 8 point review of systems is negative except for those stated above and HPI Patient History Medical History Depression (Chronic) Lactose intolerance (Chronic) Panic attacks (Chronic) Surgical History Acute appendicitis (Resolved) Family History Mother Seizures Sister Type 1 diabetes Social History household members: none Smoking Status: Never smoker alcohol intake: current alcohol intake frequency: 0-2 drinks per day Substance Use Type: does not use and marijuana Exam Initial Vital Signs Initial Vital Signs: Vital Signs Temperature 97.9 F 07/04/19 18:11 Pulse Rate 86 07/04/19 18:11 Respiratory Rate 15 07/04/19 18:11 Pulse Oximetry 98 07/04/19 18:11 GENERAL: Well-appearing, well-nourished and in no acute distress. HEENT: Head atraumatic,EOMI, pupils reactive, face symmetric, moist mucous membranes CARDIOVASCULAR: Regular rate and rhythm without murmurs, rubs or gallops. RESPIRATORY: Breath sounds equal bilaterally, no wheezes rales or rhonchi. ABDOMEN: Soft, nontender. Normoactive bowel sounds all 4 quadrants. No guarding or rebound. : Nurse Shannon at bedside, mild groin pain no hernia appreciated no significant swelling testicular pain no erythema no bulging no hernia appreciated on either side EXTREMITIES: Normal range of motion, no clubbing or edema. Neurovascularly intact NEUROLOGICAL: Alert and oriented x4.Normal gait and speech. Cranial nerves II through XII grossly intact. SKIN: Warm, dry, no laceration, no petechiae, no rashes or lesions. Course Orders Ordered: ED Orders 07/04/19 18:15 US scrotum Stat Discontinued Medications Ibuprofen (Advil) 800 mg PO NOW ONE Stop: 07/04/19 18:27 Last Admin: 07/04/19 18:29 Dose: 800 mg Documented by: KAMAR Vital Signs Vital signs: Vital Signs - 8 hr 07/04/19 18:11 07/04/19 19:57 Temperature 97.9 F Pulse Rate 86 70 Respiratory Rate 15 18 Blood Pressure [Left Arm] 122/70 Pulse Oximetry 98 98 MDM - Male Genitourinary Imaging Data scroal US: Radiologist's impression: PROCEDURE: US SCROTUM INDICATIONS: LEFT SCROTAL PAIN TECHNIQUE: Real-time scanning was performed of the scrotum and testicles, with image documentation. Color and pulse Doppler interrogation was performed of both testicles. COMPARISON: None. FINDINGS: Right: Testicle is normal in size at 5.7 x 2.4 x 3.0 cm, and homogenous in echotexture. Epididymis is normal in overall size and morphology. No hydrocele or varicoceles. Overlying scrotal skin is normal in thickness. Left: Testicle is normal in size at 5.2 x 2.1 x 3.1 cm, and homogeneous in echotexture. Epididymis is normal in overall size and morphology. No hydrocele or varicoceles. Overlying scrotal skin is normal in thickness. Doppler: Color and pulse Doppler demonstrate normal and symmetric arterial flow in both testicles. IMPRESSION: 1. Normal bilateral arterial and venous waveforms. No hyperemia or other so nographic abnormalities. No findings to explain left scrotal pain. Dictated by: Olivia Amos M.D. on 07/04/2019 at 19:29 MDM Narrative Medical decision making narrative: Patient has no sign of infection. No hernia appreciated ultrasound is negative. No sign of epididymitis. The recommend close monitoring. Urinalysis was done at walk-in clinic and was negative. Possible will musculoskeletal strain. Discharge Plan Departure Patient Disposition: Home Clinical Impression: Left groin pain Discharge Date/Time: 07/04/19 19:58 Instructions: DI for Groin Strain Activity Restrictions/Additional Instructions: *You have been diagnosed with left groin pain *What to do: At this time no cause of left groin pain. No sign of infection. *Continue to take medications as directed Ibuprofen 800 mg every 8 hours if needed for pain *Follow up with your primary care provider in 2-3 days *Return to ER if you should have increasing pain, redness, fevers or any new, worsening or concerning symptoms Prescriptions: No Action escitalopram oxalate 20 mg tablet 20 mg PO QAM Qty: 30 RF: 5 Ventolin HFA 90 mcg/actuation HFA aerosol inhaler 2 puff INHALATION Q6H PRN (Reason: shortness of breath or wheezing) Qty: 18 RF: 2 clonazepam [Klonopin] 1 mg tablet 1 mg PO AT HS PRN (Reason: anxiety) Qty: 30 RF: 0 Referrals: Bonita Nagy, [Primary Care Provider] -
[2019-07-04] MEDS: IBUPROFEN 400 MG TABLET 800 MG PO (18:29)
[2019-07-04 19:57] VITALS: BP 122/70; PULSE 70; RESP 18; O2SAT 98
== END 2019-07-04 19:58 | disposition home or self-care (01) ==
PROVIDERS: Emergency Provider Emergency Medicine; Family Provider Family Medicine; PCP Family Medicine
DX: R10.32 Left lower quadrant pain (principal); N50.82 Scrotal pain
CPT/HCPCS: 76870; 99282; 99283

== ENCOUNTER → 2019-09-11 12:50 | Outpatient (CLI) | payer OTHER, MEDICAID, SELFPAY ==
[2018-09-20 01:24] VITALS: BMI 30.1
[2019-09-11 13:37] LABS: Hemoglobin A1C% w Est Avg Glu 4.9 % (4.0-6.0)
[2019-09-11 14:13] LABS: Alanine Aminotransferase 133 IU/L (<50); Albumin 5.4 g/dL (3.5-5.0); Albumin Globulin Ratio 1.9 (1.0-2.8); Alkaline Phosphatase 70 U/L (38-126); Aspartate Aminotransferase 54 IU/L (17-59); BUN Creatinine Ratio 21.3 (6-22); Bilirubin Total 0.8 mg/dL (0.2-1.3); Blood Urea Nitrogen 17 mg/dL (9-20); Calcium 10.4 mg/dL (8.4-10.2); Carbon Dioxide 25 mmol/L (22-32); Chloride 103 mmol/L (98-107); Cholesterol 190 mg/dL (140-199); Estimated Glomerular Filt Rate > 60.0 mL/min (>60); Globulin 2.8 g/dL (1.7-4.1); Glucose 87 mg/dL (70-100); HDL Cholesterol 43 mg/dL (40-60); HEMOLYSIS 23 (0-50); LDL Cholesterol Calculated 121 mg/dL (<100); Potassium 4.7 mmol/L (3.4-5.1); Sodium 140 mmol/L (137-145); Total Protein 8.2 g/dL (6.3-8.2); Triglycerides 132 mg/dL (35-150)
[2019-09-11 14:44] LABS: Thyroid Stimulating Hormone 1.87 uIU/mL (0.47-4.68)
== END ==
PROVIDERS: PCP Family Medicine; Visit Provider Family Medicine
DX: Z13.220 Encounter for screening for lipoid disorders (principal); F41.0 Panic disorder [episodic paroxysmal anxiety]; F41.9 Anxiety disorder, unspecified; J45.909 Unspecified asthma, uncomplicated; R81 Glycosuria
CPT/HCPCS: 36415; 80053; 80061; 83036; 84443

== ENCOUNTER → 2020-06-11 11:10 | Outpatient (CLI) | payer OTHER, MEDICAID, SELFPAY ==
[2018-09-20 01:24] VITALS: BMI 30.1
== END ==
PROVIDERS: PCP Family Medicine; Visit Provider Nurse Practitioner Family
DX: R30.9 Painful micturition, unspecified (principal)
CPT/HCPCS: 87086

== ENCOUNTER → 2020-06-17 09:14 | Outpatient (CLI) | payer OTHER, MEDICAID, SELFPAY ==
[2018-09-20 01:24] VITALS: BMI 30.1
--- NOTE | 2020-06-17 09:14 | DI.US.S_ITS ---
PROCEDURE: US ABDOMEN LIMITED INDICATIONS: left inguinal pain TECHNIQUE: Real-time focused scanning was performed of the abdomen, with image documentation. COMPARISON: [facility], CT, CT ABDOMEN PELVIS W CON, 09/19/2018, 22:55. FINDINGS: Scanning is performed of the left inguinal region. No findings of hernia can be seen, including with Valsalva maneuver. IMPRESSION: Negative for hernia. Dictated by: Leonardo Myers M.D. on 06/17/2020 at 10:22 Approved by: Leonardo Myers M.D. on 06/17/2020 at 10:23
== END ==
PROVIDERS: PCP Family Medicine; Referring Provider Nurse Practitioner Family; Visit Provider Nurse Practitioner Family
DX: R10.32 Left lower quadrant pain (principal)
CPT/HCPCS: 76700

== ENCOUNTER → 2020-08-13 12:41 | Outpatient (CLI) | payer OTHER, MEDICAID, SELFPAY ==
[2018-09-20 01:24] VITALS: BMI 30.1
[2020-08-13 13:40] LABS: Add Manual Diff / Slide Review NO; Basophils Absolute Auto 0 /uL (0-100); Basophils Percent Auto 0.8 % (0-2); Eosinophils Absolute Auto 200 /uL (0-450); Eosinophils Percent Auto 4.3 % (2-4); Hematocrit 46.4 % (41-53); Lymphocytes Absolute Auto 1700 /uL (1100-4500); Lymphocytes Percent Auto 32.4 % (25-40); Mean Corpuscular HGB Conc 34.4 % (30-36); Mean Corpuscular Hemoglobin 30.2 PG (26-34); Mean Corpuscular Volume 87.8 fL (80-100); Monocytes Absolute Auto 700 /uL (0-900); Monocytes Percent Auto 12.4 % (3-14); Neutrophils Absolute Auto 2700 /uL (1500-7000); Neutrophils Percent Auto 50.1 % (50-75); Platelet Count 212 X10^3/uL (150-400); Red Blood Cell Count 5.29 X10^6/uL (4.5-5.9); Red Cell Distribution Width 12.5 % (11.6-14.8); White Blood Cell Count 5.3 X10^3/uL (4.5-11.0)
[2020-08-13 13:54] LABS: Erythrocyte Sedimentation Rate 1 MM/HR (0-15)
[2020-08-14 16:45] LABS: Mercury None Detected ug/L (0.0-14.9)
[2020-08-15 23:06] LABS: Zinc 26 ug/dL (0-99)
== END ==
PROVIDERS: PCP Family Medicine; Referring Provider Family Medicine; Visit Provider Family Medicine
DX: R20.2 Paresthesia of skin (principal)
CPT/HCPCS: 36415; 83655; 83825; 84202; 85025; 85651

== ENCOUNTER → 2021-03-19 13:58 | Outpatient (CLI) | payer OTHER, MEDICAID, SELFPAY ==
[2018-09-20 01:24] VITALS: BMI 30.1
[2021-03-19 16:20] LABS: Free T4, Direct Thyroxine 1.02 ng/dL (0.78-2.19)
[2021-03-19 16:34] LABS: Thyroid Stimulating Hormone 1.63 uIU/mL (0.47-4.68)
== END ==
PROVIDERS: PCP Family Medicine; Referring Provider Registered Nurse; Visit Provider Registered Nurse
DX: L65.9 Nonscarring hair loss, unspecified (principal); Z83.49 Family history of other endocrine, nutritional and metabolic diseases
CPT/HCPCS: 36415; 84439; 84443

== ENCOUNTER 2021-03-29 21:14 | Emergency (ER) | payer OTHER, MEDICAID, SELFPAY ==
[2018-09-20 01:24] VITALS: BMI 30.1
[2021-03-29 21:15] VITALS: BP 151/91; PULSE 81; RESP 16; TEMP 36.9; O2SAT 97; BMI 29.2
--- NOTE | 2021-03-29 21:23 | DI.RAD.S_ITS ---
PROCEDURE: XR SHOULDER LT MIN 2V INDICATIONS: fall TECHNIQUE: 3 views of the shoulder were acquired. COMPARISON: None. FINDINGS: Bones: No acute fractures or dislocations. No suspicious bony lesions. Visualized ribs appear intact. Mild acromioclavicular joint osteoarthrosis. Soft tissues: No suspicious soft tissue calcifications. IMPRESSION: No acute osseous abnormality. If clinical suspicion and/or symptoms persist, additional imaging with repeat plain films, or advanced imaging (e.g. CT, MRI) may be helpful for further assessment. Dictated by: Dax Vieira M.D. on 03/29/2021 at 21:55 Approved by: Dax Vieira M.D. on 03/29/2021 at 21:56
[2021-03-29 21:43] LABS: COVID19 -Nasal RAPID Negative (Negative)
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
[2021-03-29 22:27] VITALS: BP 152/89; PULSE 61; RESP 18; O2SAT 98
[2021-03-29] MEDS: HYDROCODONE/ACET 5/325 PREPACK 1 BOTTLE MISC (22:27)
== END 2021-03-29 22:28 | disposition home or self-care (01) ==
PROVIDERS: Emergency Provider Emergency Medicine; PCP Family Medicine
DX: M25.512 Pain in left shoulder (principal); W19.XXXA Unspecified fall, initial encounter; Z20.822 Contact with and (suspected) exposure to COVID-19
CPT/HCPCS: 73030; 87635; 99283; C9803

== ENCOUNTER → 2021-06-07 15:34 | Outpatient (CLI) | payer OTHER, MEDICAID, SELFPAY ==
[2018-09-20 01:24] VITALS: BMI 30.1
[2021-06-07 19:19] LABS: COVID19 -Nasal RAPID Negative (Negative)
== END ==
PROVIDERS: PCP Family Medicine; Visit Provider Nurse Practitioner Family
DX: Z20.822 Contact with and (suspected) exposure to COVID-19 (principal); J02.9 Acute pharyngitis, unspecified
CPT/HCPCS: 87635

== ENCOUNTER → 2022-01-17 07:28 | Outpatient (CLI) | payer OTHER, MEDICAID, SELFPAY ==
[2018-09-20 01:24] VITALS: BMI 30.1
[2022-01-17 08:53] LABS: Influenza A - CEPHEID Flu A NEGATIVE (NEGATIVE); Influenza B - CEPHEID Flu B NEGATIVE (NEGATIVE)
[2022-01-17 08:54] LABS: COVID-19 CEPHEID PCR (VTM/NP) Negative (Negative)
== END ==
PROVIDERS: PCP Family Medicine; Visit Provider Student in an Organized Health Care Education/Training Program
DX: Z20.822 Contact with and (suspected) exposure to COVID-19 (principal); R09.81 Nasal congestion; R50.9 Fever, unspecified
CPT/HCPCS: 0240U

== ENCOUNTER → 2025-01-23 14:11 | Outpatient (CLI) | payer OTHER, SELFPAY ==
[2018-09-20 01:24] VITALS: BMI 30.1
--- NOTE | 2025-01-23 14:14 | DI.RAD.S_ITS ---
PROCEDURE: XR TOE RT MIN 2V INDICATIONS: right jammed big toe TECHNIQUE: 3 views of the GREAT TOE acquired. COMPARISON: None. FINDINGS: Bones: Comminuted fracture of the base of the distal phalanx of the great toe involving the articular surface. No suspicious bony lesions. Soft tissues: No suspicious soft tissue densities. IMPRESSION: Comminuted fracture of the base of the distal phalanx of the great toe involving the articular surface. Dictated by: Alan Oneil M.D. on 01/23/2025 at 15:37 Approved by: Alan Oneil M.D. on 01/23/2025 at 15:39
== END ==
PROVIDERS: PCP Family Medicine; Referring Provider Chiropractor; Visit Provider Chiropractor
DX: S90.112A Contusion of left great toe without damage to nail, initial encounter (principal); S92.421A Displaced fracture of distal phalanx of right great toe, initial encounter for closed fracture; X58.XXXA Exposure to other specified factors, initial encounter
CPT/HCPCS: 73660